=== PATIENT | male | born 1995 | race African-American/Black ===

== ENCOUNTER 2022-01-01 00:46 | Emergency (ER) | payer OTHER, SELFPAY ==
[2022-01-01 01:06] VITALS: BP 111/69; PULSE 70; RESP 18; TEMP 36.7; O2SAT 96; BMI 19.6
== END 2022-01-01 03:15 | disposition left against medical advice (07) ==
PROVIDERS: Emergency Provider Emergency Medicine
DX: M54.50 Low back pain, unspecified (principal)
CPT/HCPCS: 99281